=== PATIENT | male | born 1985 | race Caucasian/White ===

== ENCOUNTER 2017-06-03 06:11 | Emergency (ER) | payer MEDICAID, OTHER ==
[~2017-06-03] VITALS: Ht 170.2 cm; Wt 84.9 kg
[2017-06-03 06:17] VITALS: Ht 170.2 cm; Wt 84.9 kg
--- NOTE | 2017-06-03 06:34 | ERD ---
ER Documentation Chief Complaint Chief Complaint Nasal and chest congestion for 3 days HPI 32-year-old male presents to the ED complaining of a 3 day history of worsening nasal congestion. Denies rhinorrhea, epistaxis or purulent discharge. Mild odynophagia but no dysphagia. Denies body aches or other URI symptoms. Denies chest pain or palpitations. No shortness of breath, cough, wheezing. No abdominal pain, nausea vomiting. No skin rash. No fevers or chills. ROS All systems reviewed and are negative except as per history of present illness. Medications Home Meds Active Scripts Beclomethasone Dip* (Beconase AQ*) 25 Gm [place], 2 SPRAY NASAL BID for 7 Days, SPRAY TO EACH NOSTRIL Prov:ARACELI SMITH MD 06/03/17 Loratadine/Pseudoephedrine (CLARITIN-D 24 HOUR TABLET) 1 Each Tab.er.24h, 1 TAB PO DAILY, #7 TAB Prov:ARACELI SMITH MD 06/03/17 Allergies Allergies: Coded Allergies: No Known Allergy (Unverified , 06/03/17) PMhx/Soc Reviewed in chart. As per HPI. History of Surgery: No Anesthesia Reaction: No Hx Neurological Disorder: No Hx Respiratory Disorders: No Hx Cardiac Disorders: No Hx Psychiatric Problems: No Hx Miscellaneous Medical Probl: No Hx Alcohol Use: No Hx Substance Use: No Hx Tobacco Use: No FmHx No stroke or cancer Physical Exam Vitals Vital Signs Date Time Temp Pulse Resp B/P Pulse Ox O2 Delivery O2 Flow Rate FiO2 06/03/17 06:17 97.9 90 20 147/86 98 Physical Exam Const: Alert, mild distress Head: Atraumatic Eyes: Normal Conjunctiva. No chemosis. Pupils equal react to light, extraocular movements are intact. ENT: Normal External Ears, Nose and Mouth. Pharynx is clear without erythema or exudate. No tenderness to percussion over the sinuses. Neck: Full range of motion. No lymphadenopathy, masses or tenderness. Resp: Clear to auscultation bilaterally. No wheezes or rhonchi. Cardio: Regular rate and rhythm, no murmurs Abd: Soft, non tender, non distended. Normal bowel sounds Skin: No petechiae or rashes Back: No midline or flank tenderness Ext: No cyanosis, or edema Neur: Awake and alert Psych: Normal Mood and Affect Results 24 hrs Current Medications Medications (Trade) Dose Ordered Sig/Jeffrey Route PRN Reason Start Time Stop Time Status Last Admin Dose Admin Loratadine/ Pseudoephedrine Sulfate (Claritin-D 12 Hr) 1 tab ONCE ONCE PO 06/03/17 07:00 06/03/17 07:01 Procedures/MDM DOCUMENTS REVIEWED: ED nurse, no prior records MEDICAL DECISION MAKIN-year-old male presents to the ED complaining of a 3 day history of worsening nasal congestion. Patient presents with symptoms consistent with allergic rhinitis. Admits to history of same. Although the triage note indicates chest congestion he denies this and has no shortness of breath, wheezing or other signs of reactive airway disease or pneumonia. No evidence of pharyngitis. No signs of acute viral illness. No headache or sinusitis. Stable for discharge with nasal steroids, antihistamines, precautionary instructions and outpatient follow-up as counseled. Counseled patient and family regarding diagnostic workup, diagnosis and need for followup. Understands to return to ED if symptoms recur, worsen or any other concerns. Departure Diagnosis: Primary Impression: Allergic rhinitis Chronicity: acute Allergic rhinitis trigger: unspecified Allergic rhinitis seasonality: unspecified seasonality Qualified Code: J30.9 - Acute allergic rhinitis, unspecified seasonality, unspecified trigger Additional Impression: Nasal congestion Condition: Stable ARACELI SMITH MD Jun 03, 2017 06:34
[2017-06-03] MEDS ORDERED: BECAQ NASAL (06:51)
[2017-06-03] MEDS ORDERED: LORA-777 PO (06:51)
[2017-06-03] MEDS ORDERED: LORATADINE/PSEUDOEPHED (SR) TAB PO ONE (07:00)
== END 2017-06-03 07:21 | disposition home or self-care (01) ==
LOC: FTE 06:11
DX: J30.9 Allergic rhinitis, unspecified (principal)
CPT/HCPCS: Z7502; Z7610; 99283